=== PATIENT | male | born 1990 ===

== ENCOUNTER 2019-10-02 16:39 | Inpatient (IN) | payer OTHER, SELFPAY ==
[~2019-10-02 16:39] MED LIST: Fentanyl 100 MCG/2 ML VIAL ONE
[2019-10-02] MEDS ORDERED: Propofol 1,000 MG/100 ML VIAL IV ONE ×2 (16:45→19:46)
[2019-10-02] MEDS ORDERED: Succinylcholine Chloride 20 MG/ML 10 ml SYRINGE FS ONE (17:04)
--- NOTE | 2019-10-02 17:32 | RAD ---
PORTABLE CHEST ONE VIEW: 10/02/19 at 4:48 p.m. HISTORY: Respiratory failure. FINDINGS/IMPRESSION: There is an endotracheal tube with tip just above the level of the clavicular heads. Nasogastric tube is present with tip in the stomach. There is blunting of the costophrenic angles. No lobar consolida tion, pneumothoraces, or large effusions are seen. POS: [facility]
[2019-10-02 17:41] LABS: Actual Bicarbonate (HCO3a) 24.1 mEq/L (22-28); Analyzer IN Cardio ER; Base Excess (BEa) -0.2 mEq/L (-2.0 to +3.0); CO2 Tension 38.2 mmHg (35.0-45.0); Calcium, Ionized 1.13 mmol/L (1.12-1.30); Carboxyhemoglobin (COHb) 0.5 gm% (0.0-3.0); O2 Tension (PaO2) 113.6 mmHg (80.0-100.0); Potassium - ABG Lab 3.35 mmol/L (3.70-5.30); pH, Arterial 7.42 (7.35-7.45)
[2019-10-02 17:43] LABS: Puncture Site LRA
--- NOTE | 2019-10-02 17:47 | CT ---
CT HEAD WITHOUT CONTRAST: 10/02/19 INDICATIONS: Unresponsive. Ventricles have normal size and position. There is no evidence of intracranial mass or hemorrhage. No edema. Sinuses and mastoids are aerated. There is mucosal thickening in the ethmoids and mild mucosa l thickening in the posterior sphenoid air cells. IMPRESSION: No acute intracranial process identified. POS: OFF
[2019-10-02 17:48] LABS: Bilirubin Negative (Negative); Blood, Urine Negative (Negative); Clarity Clear (Clear); Glucose, Urine (Dipstick) Normal (Negative); Leukocyte Negative Leu/uL (Negative); Nitrite Negative (Negative); Protein, Urine (Dipstick) Negative (Neg-Trace); Urobilinogen Normal mg/dL (Less than 2)
[2019-10-02 17:50] LABS: Hemoglobin 13.7 g/dL (14.0-18.0); Mean Corpuscular HGB CONC 33.9 g/dL (32.0-36.0); Mean Corpuscular Hemoglobin 29.5 pg (25.0-35.0); Mean Platelet Volume 7.8 fL (7.4-10.4); Platelet Count 183 thou/uL (130-400); RBC Distribution Width 11.7 % (11.5-14.5); Red Blood Cell (RBC) Count 4.65 mill/uL (4.00-5.20); White Blood Cell (WBC) Count 9.9 thou/uL (4.8-10.8)
[2019-10-02 17:51] LABS: #Lymphocytes 0.8 thou/uL (1.20-3.40); #Monocytes 0.4 thou/uL (0.11-0.59); #Neutrophils 8.7 thou/uL (1.40-6.50); %Basophils 0.2 % (0.0-1.0); %Eosinophils 0.1 % (0.0-10.0); %Lymphocytes 7.9 % (28.0-48.0); %Monocytes 3.7 % (0.0-4.0); %Neutrophils 88.1 % (31.0-61.0)
[2019-10-02 18:06] LABS: Amphetamine Not Detected (NotDetected); Barbiturates Screen Not Detected (NotDetected); Benzodiazepine Screen Not Detected (NotDetected); Cocaine Metabolite Screen Not Detected (NotDetected); Medtox Control Line Valid? VALID (VALID); Medtox Reader # READER 4; Methadone Not Detected (NotDetected); Methamphetamine Not Detected (NotDetected); Opiate Screen Not Detected (NotDetected); Oxycodone Screen Not Detected (NotDetected); Phencyclidine (PCP) Not Detected (NotDetected); THC/Cannabinoid Screen Not Detected (NotDetected); Tricyclic Screen Not Detected (NotDetected)
[2019-10-02 18:14] LABS: Acetaminophen Less than 6.0 mcg/mL (10.0-30.0); Alcohol Less than 10 mg/dL (Less than 10); CK (CPK) 170 U/L (30-200); Magnesium 1.6 mg/dL (1.7-2.2); Salicylate Less than 8.0 mg/dL (15.0-30.0)
[2019-10-02 18:15] LABS: ALT (SGPT) 33 U/L (8-55); AST (SGOT) 21 U/L (10-45); Albumin 3.9 g/dL (3.5-5.0); Alkaline Phosphatase 42 U/L (50-130); Anion Gap 12 mmol/L (10-20); BUN (Urea Nitrogen) 8 mg/dL (8.4-21.0); Bilirubin, Total 0.5 mg/dL (0.2-1.2); Calc. Creatinine Clearance 0 mL/min (70-130); Calcium 8.3 mg/dL (7.8-10.44); Carbon Dioxide 22 mmol/L (22-29); Chloride 107 mmol/L (98-107); Estimated GFR-MDRD Greater than 90; Globulin 2.5 g/dL (2.4-3.5); Glucose 99 mg/dL (70-105); Potassium 3.3 mmol/L (3.5-5.1); Protein, Total 6.4 g/dL (6.0-8.3); Sodium 138 mmol/L (136-145)
[2019-10-02] MEDS ORDERED: fentaNYL Citrate/PF 2,000 MCG in Sodium Chloride 0.9% 60 ML IV SCH (19:18)
--- NOTE | 2019-10-02 20:25 | CT ---
CTA AORTOGRAM CHEST AND ABDOMEN WITH CONTRAST: 10/02/19 CT aortogram was performed following protocol with multiplanar reconstruction and 3D postprocessing. INDICATIONS: Chest pain. Unresponsive. FINDINGS: Thoracic aorta shows no evidence of dissection. No evidence of aneurysm. Abdominal aorta shows no evidence of dissection or aneurysm. Aortic branch is unremarkable. The lung rivera show bibasilar infiltrates/atelectasis with dense consolidation and air bronchograms in both posterior lung bases. Liver, spleen, pancreas unremarkable. Kidneys unremarkable. The visualized bowel loops unremarkable. No free fluid or mass in the abdomen identified. IMPRESSION: 1. No evidence of thoracic or abdominal aortic dissection or aneurysm. 2. Dense bibasilar lung atelectasis/consolidation. 3. No acute intra-abdominal process. POS: OFF
--- NOTE | 2019-10-02 20:39 | PDOC.FPRHP ---
- History of Present Illness Chief Complaint: Syncopal Episode History of Present Illness: Riaz Han is a 28 y/o male who presents to the ED via EMS after he was found down and unresponsive at work. Per the ED staff, the patient was intubated in the field due to a GCS of 3, with proper placement confirmed via CXR upon arrival to the ED. The patient's girlfriend was present and assisted with much of the HPI, stating that the patient works at an [employer] where there is significant concern for toxic exposure to chemicals and hazardous fumes. The patient's girlfriend also stated that the patient had complained of intermittent chest pain for months and was encouraged to see a doctor but has never been evaluated fully. She denies any significant PMH, Family History, Surgical History, Medications, Allergies or Social History. The patient's supervisor assembling was contacted for additional information. Per the patient's supervisor assembling, the patient was found on the ground, unresponsive and without purposeful movements. There was no excessive oral secretions, sweating, rhinorrhea or suspicion of ongoing EtOH or drug abuse. The patient typically wears a respirator and an H2S monitor while at work, and works primarily with petroleum-based chemicals. No significant toxic exposures or similar have been reported at the patient's place of employment. ED Course: CT Brain and CT Dissection imaging modalities were both found to be negative. - Allergies/Adverse Reactions Allergies Allergy/AdvReac Type Severity Reaction Status Date / Time No Known Allergies Allergy Verified 10/02/19 23:38 - Home Medications Medication Instructions Recorded Confirmed Type No Known 10/03/19 10/03/19 History - History PMHx: None PSHx: None FHx: No history of significant cardiopulmonary dysfunction. Social: Social EtOH w/o tobacco or drug abuse. Obtained from the patient's girlfriend and uncle after admission. - Review of Systems ROS unobtainable: due to endotracheal tube - Vital signs BP: [115/71] HR: [84] RR: [16] Tmax: [97.2] Pox: [100]% on [Ventilator] Wt: [ 75 kg] - Physical Exam Constitutional: NAD, other (Intubated) HEENT: normocephalic and atraumatic, PERRLA, conjunctiva clear, no scleral icterus, normal nasal mucosa, MMM, oropharynx clear Neck: supple, FROM, trachea midline, no LAD, no JVD Chest: no-tender to palpation, no lesions Heart: RRR, normal S1/S2, no murmurs/rubs/gallops, pulses present, no edema Lungs: CTAB, good air movement, no rales/rhonchi, no wheezing, no retractions Abdomen: soft, non-tender, bowel sounds present, no masses/distention, no hernias Musculoskeletal: normal structure Neurological: other (Unresponsive to shouting, sternal rub, pinprick) Skin: no rash/lesions, capillary refill <2 seconds, no jaundice Heme/Lymphatic: no unusual bruising or bleeding, no purpura, no petechia, no LAD FMR H&P: Results - Labs Result Diagrams: 10/03/19 03:32 10/03/19 03:32 Lab results: WBC 9.9 thou/uL (4.8-10.8) 10/02/19 17:36 Hgb 13.7 g/dL (14.0-18.0) L 10/02/19 17:36 Hct 40.5 % (42.0-52.0) L 10/02/19 17:36 MCV 87.0 fL (78.0-98.0) 10/02/19 17:36 Plt Count 183 thou/uL (130-400) 10/02/19 17:36 Neutrophils % 88.1 % (31.0-61.0) H 10/02/19 17:36 ABG pH 7.42 (7.35-7.45) 10/02/19 17:29 ABG pCO2 38.2 mmHg (35.0-45.0) 10/02/19 17:29 ABG pO2 113.6 mmHg (80.0-100.0) H 10/02/19 17:29 Sodium 138 mmol/L (136-145) 10/02/19 17:36 Potassium 3.3 mmol/L (3.5-5.1) L 10/02/19 17:36 Chloride 107 mmol/L (98-107) 10/02/19 17:36 Carbon Dioxide 22 mmol/L (22-29) 10/02/19 17:36 BUN 8 mg/dL (8.4-21.0) L 10/02/19 17:36 Creatinine 0.81 mg/dL (0.7-1.3) 10/02/19 17:36 Glucose 99 mg/dL (70-105) 10/02/19 17:36 Lactic Acid 1.9 mmol/L (0.5-2.2) 10/02/19 17:36 Calcium 8.3 mg/dL (7.8-10.44) 10/02/19 17:36 Total Bilirubin 0.5 mg/dL (0.2-1.2) 10/02/19 17:36 AST 21 U/L (10-45) 10/02/19 17:36 ALT 33 U/L (8-55) 10/02/19 17:36 Alkaline Phosphatase 42 U/L (50-130) L 10/02/19 17:36 Creatine Kinase 170 U/L (30-200) 10/02/19 17:36 B-Natriuretic Peptide Less than 10.0 pg/mL (0-100) 10/02/19 17:36 Serum Total Protein 6.4 g/dL (6.0-8.3) 10/02/19 17:36 Albumin 3.9 g/dL (3.5-5.0) 10/02/19 17:36 Urine Ketones Negative mg/dL (Negative) 10/02/19 16:50 Urine Blood Negative (Negative) 10/02/19 16:50 Urine Nitrite Negative (Negative) 10/02/19 16:50 Ur Leukocyte Esterase Negative Stacia/uL (Negative) 10/02/19 16:50 FMR H&P: A/P - Problem List (1) AMS (altered mental status) Current Visit: Yes Status: Acute Code(s): R41.82 - ALTERED MENTAL STATUS, UNSPECIFIED - Plan Patient is a 28 y/o male currently admitted to the ICU after being found down and unresponsive. 1. AMS -Presented to the ED intubated after being found down - GCS: 3 -No significant leukocytosis or signs of acute blood loss -Mild hypokalemia w/o additional severe electrolyte disturbances -UA: Negative -UDS: Negatice -RPR: Negative -HIV: Negative -Hepatitis C: Negative -ABG pH: 7.42 -Blood Culture: Pending -EKG: Reported as normal by ED staff -CT Brain: NAF -CT Dissection: NAF -Currently intubated in ICU with Ventilator and Electrolyte Protocols -LR @ 115 ml/hr -Consider toxic exposure - known H2S at job site 2. Hypokalemia -CCU Electrolyte Protocol Code: Full - Confirmed by ICU Staff following Phone Conversation with Parents IVF: LR @ 115 ml/hr Diet: NPO Activity: Strict Bed Rest VTE PPx: Lovenox 40 mg SC Daily w/ SCDs Dispo: Patient is currently guarded in the ICU with ventilator support and maintenance IVF following unremarkable work-up. Continue to monitor vital signs and electrolytes, await blood cultures, and wean from ventilator following increase in GCS. Expected LOS > 48H. FMR H&P: Upper Level - Pertinent history 28 y/o M no known PMHx presented from [facility] because pt became suddenly unresponsive while at work. He works at [employer] and suddenly collapsed. When EMS arrived and he was unresponsive he was intubated on the scene. He was given ketamine and tad in the field as well as versed and fentanyl in transit. Upon arrival to our facility he remained intubated and sedated and has been getting propofol, fentanyl, etomidate, 1L NS. Other history from pt's girlfriend who reports they got in an argument last night and he was upset about that. Otherwise no known history as pt does not like to go to doctors. Denies any substance use. - Pertinent findings BP: 110/58, MAP: 75, Pulse: 70, Resp: 18 (Non-Labored), Temp: 97 (Criticore Temp ), O2 sat: 100 on (Ventilator), End-Tidal CO2: 30 PE: Gen - sedated and intubated on the ventilator, unresponsive HEENT - MMM CV - RRR, no murmurs Resp - CTAB on ventilator Abd - soft, non-distended Neuro - unresponsive Labs: Hb 13.7, Na 138, K 3.3, Mag 1.6, BUN 8, Cr 0.81, Lactic acid 1.9, Trop < 0.01, BNP < 10, TSH 1.0658, UDS negative, SDS negative, UA negative CT head - no acute process CXR - blunting of costophrenic angle bilaterally CT dissection - dense bibasilar atelectasis, no dissection or acute intraabdominal process EKG - tachycardic, regular rhythm, no ST or T wave changes - Plan Date/Time: 10/02/192037 I, Misty Peck MD, PGY-3, have evaluated this patient and agree with findings/ plan as outlined by hospital internship resident. Pertinent changes/additions are listed here. Acute Respiratory Failure Pt unable to protect airway due to unresponsiveness. ABG normal, but was collected after intubation. No known cause at this time. -Admit to ICU -Consult Dr. Marie with pulmonology, appreciate recs -Monitor on telemetry -Sedation protocol overnight Acute Encephalopathy Unknown cause. Pt unable to protect airway in the field, so was intubated. Labwork has been normal thus far with no signs of toxic exposure or metabolic derangement. No signs of cardiac cause. No known PMHx. Per pt's boss there were no known toxic exposures at work. -Pt sedated so unable to accurately perform GCS at this time -Will check ESR and if elevated check [place] -Check HIV, RPR, Hep C -Monitor on telemetry -Trend troponins -Monitor strict I/O's Hypokalemia K 3.3 -Will replete Hypomagnesemia Mag 1.6 -Will replete Dispo: Admit to ICU LOS: Likely greater than 2 days Lines/Tubes: ET tube 10/02, NG tube 10/02, Rangel 10/02 GI ppx: famotidine VTE ppx: Lovenox, SCD's Addendum - Attending - Attending Attestation Date/Time: 10/02/192127 I personally evaluated the patient and discussed the management with Dr. Kemp and Dr. Peck I agree with the History, Examination, Assessment and Plan documented above with any addition or exceptions noted below. 28 yo male with no known medical history presents to ER via EMS intubated in the field due to GCS of 3. Transportation Engineering Technician contacted for help with history. Discussed findings with ER staff based on EMS report. Discussed history and recent events with girl friend. Unable to localize any significant history to explain current state. Girl friend did note that have been fighting over the past few days. Does not feel he was suicidal. She reports he has complained of chest pain for the past few months. Has not seeked medical care. Also expressed concern for exposure to hazardous chemicals at work. VS stable and grossly normal. Intubated and sedated. Labs and imaging reviewed. acute encephalopathy: Unsure etiology. Metabolic vs toxic. No prior history of substance use that girlfriend is aware of but they have been fighting over the past few days. Unsure of synthetic substance ingested. Patient also exposed to hazardous chemicals at work but wears appropriate PPE. Rule out cardiac cause. No evidence of VTE or seizure like activity. Low suspicion for infectious source. No evidence of cerebral ischemia. Would consult neuro. Could consider EEG if remains non-responsive and MRI. acute respiratory failure: Intubated in the field. Patient unable to protect airway. GCS of 3. Admit to IMCU. Continue sedation and vent throughout the night. Pulm consulted. electrolyte abnormalities: Trend and replace. Follow closely. Juan J
[2019-10-02] MEDS ORDERED: Ventilator Sedation Protocol 1 EACH FS ONE (22:05)
[2019-10-02] MEDS ORDERED: CCU Electrolyte Replacement 1 EACH FS ONE (22:08)
[2019-10-02] MEDS ORDERED: Lorazepam 2 MG/ML VIAL SLOW IVP PRN (22:11)
[2019-10-02] MEDS ORDERED: Morphine 2 MG/ML SYRINGE SLOW IVP PRN (22:11)
[2019-10-02] MEDS ORDERED: Fentanyl BOLUS 250 ML IVPB PRN (22:11)
[2019-10-02] MEDS ORDERED: DISCONTINUE PREVIOUS NARCOTIC PAIN MEDICATIONS AND BENZODIAZEPINES FS SCH (22:11)
[2019-10-02] MEDS ORDERED: Propofol BOLUS 1,000 MG/100 ML VIAL IV PRN (22:11)
[2019-10-02] MEDS ORDERED: Potassium Phosphate 15 MMOL in Sodium Chloride 0.9% 250 ML 250 ML IV PRN (22:12)
[2019-10-02] MEDS ORDERED: CCU ELECTROLYTE REPLACEMENT PROTOCOL FS PRN (22:12)
[2019-10-02] MEDS ORDERED: Potassium Phosphate 9 MMOL in Sodium Chloride 0.9% 100 ML IVPB PRN (22:12)
[2019-10-02] MEDS ORDERED: Magnesium 2 GM/50 ML 2 GM in Premix Bag 1 BAG IVPB PRN (22:12)
[2019-10-02] MEDS ORDERED: PHOS-NAK 1 PKT PACK PO PRN ×2 (22:12)
[2019-10-02] MEDS ORDERED: Magnesium Oxide 400 MG TAB PO PRN ×2 (22:12)
[2019-10-02] MEDS ORDERED: Potassium Chloride 40 MEQ in Premix Bag 1 BAG IVPB PRN (22:12)
[2019-10-02] MEDS ORDERED: Potassium Phosphate 12 MMOL in Sodium Chloride 0.9% 250 ML 250 ML IV PRN (22:12)
[2019-10-02] MEDS ORDERED: Potassium Chloride 20 MEQ TAB PO PRN (22:12)
[2019-10-02] MEDS ORDERED: Sodium Chloride 0.9% 1,000 ML IV SCH (22:15)
[2019-10-02 22:39] LABS: Syphilis Antibody Nonreactive (Nonreactive); Syphilis Antibody Index 0.07 S/CO (<1.00 Non-Reactive)
[2019-10-02 23:09] LABS: HIV (1/2) Antibody/Antigen Non-Reactive (NonReactive); HIV 1/2 INDEX 0.06 S/CO (<1.00); Hep C IgG Ab Non-Reactive (NonReactive); Hep C Index 0.15 S/CO (0-0.79)
[2019-10-02 23:39] LABS: Troponin I Less than 0.010 ng/mL (< 0.028)
[2019-10-02] MEDS: Propofol 1,000 MG/100 ML VIAL IV PRN (23:48)
[2019-10-02] MEDS: Potassium Chloride 40 MEQ in Sodium Chloride 0.9% 250 ML 250 ML IVPB PRN (23:49)
[2019-10-03 01:27] LABS: Troponin I Less than 0.010 ng/mL (< 0.028)
[2019-10-03 03:55] LABS: #Basophils 0.1 thou/uL (0.0-0.2); #Eosinphils 0.1 thou/uL (0.0-0.7); #Lymphocytes 1.8 thou/uL (1.20-3.40); #Monocytes 0.5 thou/uL (0.11-0.59); #Neutrophils 4.3 thou/uL (1.40-6.50); %Eosinophils 1.2 % (0.0-10.0); %Lymphocytes 26.8 % (28.0-48.0); %Monocytes 7.3 % (0.0-4.0); %Neutrophils 63.8 % (31.0-61.0); Hemoglobin 12.6 g/dL (14.0-18.0); Mean Corpuscular HGB CONC 34.2 g/dL (32.0-36.0); Mean Corpuscular Hemoglobin 29.2 pg (25.0-35.0); Mean Corpuscular Volume 85.2 fL (78.0-98.0); Mean Platelet Volume 7.7 fL (7.4-10.4); Platelet Count 167 thou/uL (130-400); RBC Distribution Width 11.8 % (11.5-14.5); Red Blood Cell (RBC) Count 4.34 mill/uL (4.00-5.20); White Blood Cell (WBC) Count 6.8 thou/uL (4.8-10.8)
[2019-10-03 04:20] LABS: ALT (SGPT) 26 U/L (8-55); AST (SGOT) 17 U/L (10-45); Albumin 3.3 g/dL (3.5-5.0); Alkaline Phosphatase 39 U/L (50-130); Anion Gap 9 mmol/L (10-20); BUN (Urea Nitrogen) 8 mg/dL (8.4-21.0); Bilirubin, Total 0.8 mg/dL (0.2-1.2); Calc. Creatinine Clearance 172 mL/min (70-130); Calcium 8.1 mg/dL (7.8-10.44); Carbon Dioxide 22 mmol/L (22-29); Chloride 112 mmol/L (98-107); Estimated GFR-MDRD Greater than 90; Globulin 2.1 g/dL (2.4-3.5); Glucose 92 mg/dL (70-105); Potassium 3.3 mmol/L (3.5-5.1); Protein, Total 5.4 g/dL (6.0-8.3); Sodium 140 mmol/L (136-145)
[2019-10-03] MEDS: Propofol 1,000 MG/100 ML VIAL IV PRN ×2 (04:44→08:18)
[2019-10-03] MEDS: Lactated Ringer's 1,000 ML IV SCH ×3 (05:04→20:49)
[2019-10-03] MEDS: Potassium Chloride 40 MEQ in Sodium Chloride 0.9% 250 ML 250 ML IVPB PRN (05:05)
--- NOTE | 2019-10-03 06:24 | PDOC.FM ---
- Subjective Subjective: The patient's nurse reports he has been much more active overnight, making purposeful movements and following commands. He states the vitals have been stable with some occasional bradycardia and mild hypotension with systolics in the 90s during these events. Pt is currently sedated and is sluggish to follow commands. - Objective MAR Reviewed: Yes Vital Signs & Weight: Vital Signs (12 hours) Temp Resp Pulse Ox 10/03/19 06:00 16 10/03/19 04:00 98.5 F 18 10/03/19 02:00 16 10/03/19 00:00 98.5 F 16 10/02/19 22:42 16 100 10/02/19 21:30 97.7 F Weight Weight 74.6 kg Most Recent Monitor Data Heart Rate from ECG 57 NIBP 92/48 NIBP BP-Mean 62 Respiration from ECG 18 SpO2 100 I&O: 10/01/19 10/02/19 10/03/19 06:59 06:59 06:59 Intake Total 1459.3 Output Total 1380 Balance 79.3 Result Diagrams: 10/03/19 03:32 10/03/19 03:32 Phys Exam - Physical Examination GCS [id number] HEENT: PERRLA, moist MMs, sclera anicteric Neck: no JVD coarse lung sounds, good air movment Cardiovascular: RRR, no significant murmur, no rub, gallop Gastrointestinal: soft, no distention, positive bowel sounds Musculoskeletal: no edema, pulses present Neurological: moves all 4 limbs Skin: cap refill <2 seconds Dx/Plan (1) Acute encephalopathy Code(s): G93.40 - ENCEPHALOPATHY, UNSPECIFIED Status: Acute (2) AMS (altered mental status) Code(s): R41.82 - ALTERED MENTAL STATUS, UNSPECIFIED Status: Acute - Plan Plan: 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 Marie has been consulted, will appreciate his recommendations -Consider starting abx for cap if pt spikes fever as unknown if pt aspirated Acute Encephalopathy, unknown cause -Negative UDS, HIV, RPR, Hep C, ESR, EKG, brain CT, dissection CT -Troponins negative x3 -Strict I&Os -Will get an echocardiogram to assess heart function -Blood cultures NGTD Hypokalemia -Replacing Hypomagnesemia -Replacing Plastic: OG tube, ET tube, Rangel catheter Drips: Fentanyl 60mcg/hr, Propofol 45mcg/hr Lines: 18g right wrist/forearm, 18g left wrist/forearm I&Os:356ml in/1380ml out Fluids: LR at 115ml/hr
[2019-10-03] MEDS ORDERED: Enoxaparin Sodium 40 MG/0.4 ML SYRINGE SC SCH (09:00)
[2019-10-03] MEDS ORDERED: FLU VACC QS2019-20(6MOS UP)/PF 60 MCG/0.5 ML SYRINGE IM ONE (09:00)
[2019-10-03] MEDS: Famotidine/PF 20 mg/2ml Vial SLOW IVP SCH ×2 (09:39→20:48)
[2019-10-03] MEDS: Enoxaparin Sodium 40 MG/0.4 ML SYRINGE SC SCH (09:39)
[2019-10-03] MEDS ORDERED: DC Sedation Protocol FS ONE (10:58)
[2019-10-03] MEDS ORDERED: Dexamethasone 4 MG in Sodium Chloride 0.9% 50 ML IVPB SCH (12:00)
[2019-10-03] MEDS: Cefepime 2 GM in Sodium Chloride 0.9% 100 ML IVPB SCH ×2 (12:37→23:52)
[2019-10-03] MEDS: Dexamethasone 4 mg/ml Vial SLOW IVP SCH ×3 (12:37→23:52)
[2019-10-04 05:11] LABS: #Lymphocytes 0.6 thou/uL (1.20-3.40); #Monocytes 0.1 thou/uL (0.11-0.59); #Neutrophils 10.1 thou/uL (1.40-6.50); %Eosinophils 0.1 % (0.0-10.0); %Lymphocytes 5.4 % (21.0-51.0); %Monocytes 1.3 % (0.0-10.0); %Neutrophils 93.2 % (42.0-75.0); Hemoglobin 13.6 g/dL (14.0-18.0); Mean Corpuscular HGB CONC 32.9 g/dL (32.0-36.0); Mean Corpuscular Hemoglobin 28.2 pg (27.0-31.0); Mean Corpuscular Volume 85.7 fL (78.0-98.0); Platelet Count 169 thou/uL (130-400); RBC Distribution Width 11.8 % (11.5-14.5); Red Blood Cell (RBC) Count 4.82 mill/uL (4.70-6.10); White Blood Cell (WBC) Count 10.8 thou/uL (4.8-10.8)
--- NOTE | 2019-10-04 05:11 | PDOC.FM ---
- Subjective Subjective: Nursing reports pt did well overnight and has been more alert. Pt states he does not remember what happened. He has been working for the same company for 3 years. He reports some pain in his chest this morning. He is concerned about getting in touch with his work to let them know he is here. He reports being hungry. He denies SOB. He reports some abdominal pain. - Objective MAR Reviewed: Yes Vital Signs & Weight: Vital Signs (12 hours) Temp Pulse Resp Pulse Ox 10/04/19 04:00 97.7 F 10/04/19 00:24 97 21 H 100 10/04/19 00:00 97.9 F 10/03/19 20:00 97.6 F 100 10/03/19 18:32 94 17 100 Weight Weight 74.6 kg Most Recent Monitor Data Heart Rate from ECG 84 NIBP 127/61 NIBP BP-Mean 83 Respiration from ECG 21 SpO2 100 I&O: 10/02/19 10/03/19 10/04/19 06:59 06:59 06:59 Intake Total 1459.3 1493 Output Total 1380 3040 Balance 79.3 -1547 Result Diagrams: 10/04/19 04:35 10/04/19 04:35 Phys Exam - Physical Examination Constitutional: NAD HEENT: moist MMs Neck: no JVD Respiratory: no wheezing, clear to auscultation bilateral Cardiovascular: RRR, no significant murmur Gastrointestinal: soft, no distention, positive bowel sounds mild ttp around the umbilicus Musculoskeletal: no edema, pulses present Neurological: moves all 4 limbs Psychiatric: A&O x 3 Skin: cap refill <2 seconds Dx/Plan (1) Acute encephalopathy Code(s): G93.40 - ENCEPHALOPATHY, UNSPECIFIED Status: Acute (2) AMS (altered mental status) Code(s): R41.82 - ALTERED MENTAL STATUS, UNSPECIFIED Status: Acute - Plan Plan: 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 Loredo has been consulted, will appreciate his recommendations -Consider starting abx for cap if pt spikes fever as unknown if pt aspirated Acute Encephalopathy, unknown cause -Negative UDS, HIV, RPR, Hep C, ESR, EKG, brain CT, dissection CT -Troponins negative x3 -Strict I&Os -Echo shows normal function -Blood cultures NGTD Hypokalemia, resolved Hypomagnesemia, resolved Plastic: Rangel Drips: None Lines: 18g right wrist/forearm, 18g left wrist/forearm I&Os: -1468 Fluids: None Diet: regular
[2019-10-04 05:18] LABS: ALT (SGPT) 24 U/L (8-55); AST (SGOT) 16 U/L (5-34); Albumin 3.8 g/dL (3.5-5.0); Alkaline Phosphatase 45 U/L (40-110); Anion Gap 11 mmol/L (10-20); BUN (Urea Nitrogen) 8 mg/dL (8.9-20.6); Bilirubin, Total 0.6 mg/dL (0.2-1.2); Calc. Creatinine Clearance 145 mL/min (70-130); Calcium 9.3 mg/dL (7.8-10.44); Carbon Dioxide 26 mmol/L (22-29); Chloride 105 mmol/L (98-107); Estimated GFR-MDRD Greater than 90; Globulin 2.8 g/dL (2.4-3.5); Glucose 127 mg/dL (70-105); Potassium 4.6 mmol/L (3.5-5.1); Protein, Total 6.6 g/dL (6.0-8.3); Sodium 137 mmol/L (136-145)
[2019-10-04] MEDS: Dexamethasone 4 mg/ml Vial SLOW IVP SCH (05:51)
[2019-10-04 06:03] VITALS: BMI 26.9
[2019-10-04] MEDS ORDERED: DC Sedation Protocol FS ONE (08:42)
--- NOTE | 2019-10-04 08:50 | CON ---
DATE OF CONSULTATION: HISTORY OF PRESENT ILLNESS: Bebeto Han is a 19-year-old gentleman, who speaks no Greenlandic. His aunt is at the bedside along with the aunt's brother. The nephew stays with the aunt. 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 Somewhere around 1430 hours yesterday, he developed chest pain and became unresponsive, apparently so many work. He was apparently at a [employer]. He clenched his chest and became unresponsive. A drug screen was done, which was negative. He was air evaced to hospital from the [employer] area. He is intubated. He remains intubated in the ICU . We have been consulted. His aunt says he is from [place]. PAST MEDICAL HISTORY: No diabetes or hypertension. PAST SURGICAL HISTORY: None. CHRONIC MEDICATIONS: None. SOCIAL HISTORY: Minimal alcohol. No tobacco abuse. No previous surgeries. No previous hospitalization. PHYSICAL EXAMINATION: VITAL SIGNS: Blood pressure 140/80, pulse 100, saturations 100% on the vent, he was moving and thrashing, clenching his teeth, turned his sedation off his CPAP, his tidal volume was good. CHEST: Rhonchi and crackles. CARDIAC: Normal S1 and S2. No gallops. ABDOMEN: No masses. LABORATORY DATA: Lytes are normal. His drug screen is negative. Liver function is normal. His CT of brain was negative. CT chest dissection protocol for chest pain did not show anything obvious except those bibasilar air bronchograms and consolidation. IMAGING STUDIES: His x-ray shows elevated right hemidiaphragm. IMPRESSION AND PLAN: 1. Acute onset of chest pain with collapse and presumed respiratory failure. 2. The family says one week of some kind of febrile illness and cough. 3. Possibly hydrogen sulfide associated chemical tracheobronchitis, though apparently, he is away from the tanks. 4. Possibly community-acquired pneumonia. History is rather unusual. No obvious source of his acute chest pain and respiratory compromise requiring intubation. We will treat him like pneumonia, antibiotics, a brief course of Decadron. May repeat CT angio again to rule out pulmonary emboli, though I doubt. His saturations 100% for the time being. He is on deep venous thrombosis prophylaxis, which was continued. Poison Control was notified and contacted last night, they offer no additional input. This is a 45-minute critical care time. We will follow. Job ID: [id number]
--- NOTE | 2019-10-04 08:59 | PRG ---
DATE OF SERVICE: 10/04/2019 SUBJECTIVE: He was extubated yesterday. He is no longer encephalopathic. He said he is not having difficulty breathing. In fact, he is eating breakfast, though he has had some chest pain off and on for a period of time. OBJECTIVE: VITAL SIGNS: Saturations are 100%, pulse 109, respiratory rate 18, and blood pressure 120/64. CHEST: Bilateral crackles. No wheezing. CARDIAC: Normal S1 and S2. No gallops. ABDOMEN: No mass. DIAGNOSTIC STUDIES: X-ray did not show an obvious infiltrate. The CAT scan showed bibasilar infiltrates. ASSESSMENT: 1. Respiratory failure, etiology unclear. 2. Chest pain, probably musculoskeletal. 3. EF normal. 4. Exposures to hydrogen sulfide gas. PLAN: Pulmonary will, switch him over to oral antibiotics tomorrow. PT, supportive care. He may be able to discharge home in the next 24 to 48 hours. Job ID: [id number]
--- NOTE | 2019-10-04 09:10 | RAD ---
RADIOGRAPH CHEST 1 VIEW: 10/04/2019 4:30 a.m. HISTORY: A 28-year-old male in respiratory distress status post extubation. COMPARISON: 10/02/2019 FINDINGS: Endotracheal tube and esophagogastric tube have been removed. The lungs remain hypoinflated. Mild non specific pulmonary opacities at the right infrahilar medial base, perhaps atelectasis. No pulmonary e rochelle. The rest of the lungs are clear. The cardiomediastinal silhouette is normal. No pneumothorax. IMPRESSION: 1. Status post extubation. 2. Small region of increased attenuation at the right medial lung base, nonspecific, but probably ate lectasis. 3. Otherwise the rest of the lungs are clear. JN [] POS: CET
[2019-10-04] MEDS: Enoxaparin Sodium 40 MG/0.4 ML SYRINGE SC SCH (10:06)
[2019-10-04] MEDS: Famotidine/PF 20 mg/2ml Vial SLOW IVP SCH (10:06)
[2019-10-04] MEDS: Cefepime 2 GM in Sodium Chloride 0.9% 100 ML IVPB SCH ×2 (13:28→22:56)
[2019-10-05 06:07] LABS: #Eosinphils 0.1 thou/uL (0.0-0.7); #Lymphocytes 1.8 thou/uL (1.20-3.40); #Monocytes 0.7 thou/uL (0.11-0.59); %Basophils 0.4 % (0.0-1.0); %Eosinophils 0.6 % (0.0-10.0); %Lymphocytes 20.6 % (21.0-51.0); %Monocytes 8.3 % (0.0-10.0); Hemoglobin 13.2 g/dL (14.0-18.0); Mean Corpuscular HGB CONC 33.1 g/dL (32.0-36.0); Mean Corpuscular Hemoglobin 28.8 pg (27.0-31.0); Platelet Count 172 thou/uL (130-400); Red Blood Cell (RBC) Count 4.59 mill/uL (4.70-6.10); White Blood Cell (WBC) Count 8.6 thou/uL (4.8-10.8)
[2019-10-05 07:06] LABS: ALT (SGPT) 22 U/L (8-55); AST (SGOT) 15 U/L (5-34); Albumin 3.8 g/dL (3.5-5.0); Alkaline Phosphatase 40 U/L (40-110); Anion Gap 10 mmol/L (10-20); BUN (Urea Nitrogen) 14 mg/dL (8.9-20.6); Bilirubin, Total 0.6 mg/dL (0.2-1.2); Calc. Creatinine Clearance 144 mL/min (70-130); Calcium 9.1 mg/dL (7.8-10.44); Carbon Dioxide 29 mmol/L (22-29); Chloride 105 mmol/L (98-107); Estimated GFR-MDRD Greater than 90; Globulin 2.7 g/dL (2.4-3.5); Glucose 101 mg/dL (70-105); Potassium 3.8 mmol/L (3.5-5.1); Protein, Total 6.5 g/dL (6.0-8.3); Sodium 140 mmol/L (136-145)
[2019-10-05] MEDS: Enoxaparin Sodium 40 MG/0.4 ML SYRINGE SC SCH (07:37)
[2019-10-05 07:38] VITALS: BP 123/77; TEMP 99
--- NOTE | 2019-10-05 12:03 | PDOC.FM ---
- Subjective Subjective: Pt reports doing well. Denies any acute events overnight. denies any SOB. Reports mild cough. States is dry. Pt denies any fever or chills. Denies any n/v /d/c. Denies any weakness. Denies any vision changes. Denies any headaches. - Objective Vital Signs & Weight: Vital Signs (12 hours) Temp Pulse Resp BP Pulse Ox 10/05/19 07:51 98 10/05/19 07:35 99 F 96 18 123/77 93 L 10/05/19 06:23 76 16 97 10/05/19 02:51 99 10/05/19 00:08 100 16 93 L Weight Weight 82.5 kg Most Recent Monitor Data Heart Rate from ECG 112 NIBP 112/73 NIBP BP-Mean 86 Respiration from ECG 18 SpO2 100 I&O: 10/04/19 10/05/19 10/06/19 06:59 06:59 06:59 Intake Total 2824 1290 Output Total 3895 900 Balance -1071 390 Result Diagrams: 10/05/19 05:17 10/05/19 06:19 Radiology Reviewed by me: Yes Radiology: 10/04: S/p extubation. Small region of increased attenuation at the RML base. Nonspecific, but probably atelectasis. Otherwise the rest of the lungs are clear. Phys Exam - Physical Examination Constitutional: NAD HEENT: PERRLA, moist MMs, oral pharynx no lesions Neck: no nodes, no JVD, supple, full ROM Respiratory: no wheezing, no rales, no rhonchi, clear to auscultation bilateral Cardiovascular: RRR, no significant murmur, no rub Gastrointestinal: soft, non-tender, no distention, positive bowel sounds Musculoskeletal: no edema, pulses present Neurological: non-focal, normal sensation, moves all 4 limbs Psychiatric: normal affect, A&O x 3 Skin: no rash, normal turgor, cap refill <2 seconds Dx/Plan (1) AMS (altered mental status) Code(s): R41.82 - ALTERED MENTAL STATUS, UNSPECIFIED Status: Acute (2) Acute encephalopathy Code(s): G93.40 - ENCEPHALOPATHY, UNSPECIFIED Status: Acute - Plan Plan: 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 Loredo has been consulted, and reports as stable. -Pt breathing well. Has slight wheeze. Possibly related to intubation. Will send home with inhaler. Acute Encephalopathy, unknown cause -Negative UDS, HIV, RPR, Hep C, ESR, EKG, brain CT, dissection CT -Troponins negative x3 -Strict I&Os -Echo shows normal function -Blood cultures NGTD at 48 hours -Pt reports feeling well. Suspect related to unknown material from his job. Works in [employer]. Hypokalemia, resolved Hypomagnesemia, resolved Plastic: Rangel Drips: None Lines: 18g right wrist/forearm, 18g left wrist/forearm I&Os: -1468 Fluids: None Diet: regular Pt ready for d/c at this time. Addendum - Attending - Attending Attestation Date/Time: 10/05/19 [id number] I personally evaluated the patient and discussed the management with Dr. Jean Baptiste. I agree with the History, Examination, Assessment and Plan documented above with any addition or exceptions noted below. The patient is feeling well this morning. Will d/c home.
== END 2019-10-05 12:57 | disposition home or self-care (01) | DRG 208 ==
LOC: EDBD 16:39 → ERS 16:39 → EDBD 20:46 → CCU 20:46 → T4-B 10-04 16:11
PROVIDERS: ADMIT Student in an Organized Health Care Education/Training Program; ATTEND Student in an Organized Health Care Education/Training Program
PROC: 0BH17EZ Insertion of Endotracheal Airway into Trachea, Via Natural or Artificial Opening (ICD-10-PCS; principal; 2019-10-02)
PROC: 5A1935Z Respiratory Ventilation, Less than 24 Consecutive Hours (ICD-10-PCS; 2019-10-02)
DX: J96.00 Acute respiratory failure, unspecified whether with hypoxia or hypercapnia (principal); G93.40 Encephalopathy, unspecified; J98.11 Atelectasis; E87.6 Hypokalemia; R40.2432 Glasgow coma scale score 3-8, at arrival to emergency department; E83.42 Hypomagnesemia
CPT/HCPCS: 31500; 36415; 70450; 71045; 71275; 72191; 74175; 80053; 80306; 80307; 81003; 82550; 82805; 83605; 83735; 83880; 84443; 84484; 85025; 85652; 86780; 86803; 87040; 87389; 93005; 93306; 94002; 94003; 96365; 96366; 96368; 96376; J0692; J1100; J1650; J2704; J3010; J3475; J3480; J3490; J7050; J7620; S0028